=== PATIENT | male | born 1935 | race Caucasian/White ===

== ENCOUNTER 2021-06-09 11:16 | Inpatient (IN) ==
[2021-06-09] MEDS ORDERED: SODIUM CHLORIDE 0.9% 1,000 ML IV STA (12:22)
[2021-06-09] MEDS ORDERED: ONDANSETRON 4 MG/2 ML VIAL IV STA (12:22)
[2021-06-09 12:42] LABS: Basophils % 0.2 % (0.0-0.8); Eosinophils # 0.3 10*3/uL (0.0-0.87); Eosinophils % 1.9 % (0.00-10.9); Immature Granulocytes % 0.5 %; Immature Granulocytes Absolute 0.08 #; Lymphocytes # 2.6 10*3/uL (1.4-4.0); Lymphocytes % 17.9 % (21.2-54.2); Mean Corpuscular HGB Conc 31.9 GM/DL (32-36); Mean Corpuscular Volume 79.4 FL (87-102); Mean Platelet Volume 10.4 FL (9.6-12.0); Monocytes % 14.6 % (1.7-12.7); Neutrophils % 64.9 % (38.7-73.9); Platelet Count 378 T/CUMM (130-400); Red Blood Count 5.92 MC/CUMM (3.8-5.5); Red Cell Distribution Width 14.3 % (9.3-17.3); White Blood Count 14.6 T/CUMM (4-12)
[2021-06-09 12:52] LABS: Bacteria,Urine Occasional /HPF (Few); Bilirubin,Urine Negative (Negative); Blood, Urine Negative (Negative); Glucose,Urine (UA) Negative (Negative); Hyaline Casts,Urine 9 /LPF (0-3); Ketones,Urine Negative (Negative); Mucus,Urine Many /LPF (Occasional); Nitrite,Urine Negative (Negative); Protein,Urine 100 MG/DL; RBC,Urine 1 /HPF (0-4); Urine Appearance CLOUDY (Clear); Urine Color Amber (Yellow); Urine Urobilinogen < 2.0 EU/DL (0.2-1.0)
[2021-06-09 12:54] LABS: Calcium 10.4 MG/DL (8.5-10.1); Osmolality,Calculated 265.5 MOS/KG (273-304); Potassium 3.4 MMOL/L (3.5-5.1); Total Protein 8.5 G/DL (6.4-8.2)
[2021-06-09] MEDS ORDERED: DEXTROSE 50% 25 GM/50 ML VIAL IV PRN (15:18)
[2021-06-09] MEDS ORDERED: GLUCAGON 1 MG VIAL IM PRN (15:18)
[2021-06-09] MEDS ORDERED: ACETAMINOPHEN 325 MG TABLET PO PRN (15:19)
[2021-06-09] MEDS ORDERED: ONDANSETRON 4 MG/2 ML VIAL IV PRN (15:19)
[2021-06-09] MEDS ORDERED: cefTRIAXone 2,000 MG in SODIUM CHLORIDE 0.9% 100 ML IV STA (15:21)
[2021-06-09] MEDS ORDERED: FLUTICASONE 50 MCG NASAL SPRAY 16 GM BOTTLE BOTH NARES PRN (15:32)
[2021-06-09] MEDS: ENOXAPARIN 40 MG/0.4 ML SYRINGE SUBCUT SCH (16:00)
[2021-06-09] MEDS: SODIUM CHLORIDE 0.9% 1,000 ML IV SCH (18:50)
[2021-06-09] MEDS ORDERED: NON-FORMULARY MEDICATION (Omeprazole 20 MG capsule,delayed release(DR/EC)) PO SCH (21:00)
[2021-06-09] MEDS: MONTELUKAST 10 MG TABLET PO SCH (21:41)
[2021-06-09] MEDS: PRAVASTATIN 40 MG TABLET PO SCH (21:42)
[2021-06-10] MEDS: SODIUM CHLORIDE 0.9% 1,000 ML IV SCH ×4 (05:05→16:02)
[2021-06-10 05:58] LABS: Basophils % 0.2 % (0.0-0.8); Eosinophils # 0.4 10*3/uL (0.0-0.87); Eosinophils % 4.9 % (0.00-10.9); Hematocrit 39.6 VOL% (42.0-52.0); Immature Granulocytes % 0.3 %; Immature Granulocytes Absolute 0.03 #; Lymphocytes # 3.1 10*3/uL (1.4-4.0); Mean Corpuscular HGB Conc 31.8 GM/DL (32-36); Mean Corpuscular Volume 80.7 FL (87-102); Mean Platelet Volume 10.1 FL (9.6-12.0); Monocytes % 13.6 % (1.7-12.7); Platelet Count 308 T/CUMM (130-400); Red Blood Count 4.91 MC/CUMM (3.8-5.5); Red Cell Distribution Width 14.4 % (9.3-17.3)
[2021-06-10 06:01] LABS: Hemoglobin 12.6 GM/DL (14.0-18.0); White Blood Count 8.7 T/CUMM (4-12)
[2021-06-10 06:04] LABS: Osmolality,Calculated 274.8 MOS/KG (273-304); Potassium 3.4 MMOL/L (3.5-5.1)
[2021-06-10] MEDS ORDERED: THYROID 60 MG TABLET PO SCH (09:00)
[2021-06-10] MEDS: MULTIVITAMIN (CENTRUM) TABLET PO SCH (09:39)
[2021-06-10] MEDS: PANTOPRAZOLE 40 MG TABLET PO SCH (09:39)
[2021-06-10] MEDS: NORTRIPTYLINE 25 MG CAPSULE PO SCH (09:39)
[2021-06-10] MEDS: DILTIAZEM CD 120 MG CAPSULE PO SCH (09:39)
[2021-06-10] MEDS: FENOFIBRATE 145 MG TABLET PO SCH (09:43)
[2021-06-10] MEDS: oxyCODONE/ACETAMINOPHEN 5-325 MG TABLET PO PRN (09:43)
[2021-06-10] MEDS: cefTRIAXone 2,000 MG in SODIUM CHLORIDE 0.9% 100 ML IV SCH (14:49)
[2021-06-10] MEDS: DICYCLOMINE 20 MG TABLET PO SCH ×2 (17:17→20:28)
[2021-06-10] MEDS: MONTELUKAST 10 MG TABLET PO SCH (20:28)
[2021-06-10] MEDS: ENOXAPARIN 40 MG/0.4 ML SYRINGE SUBCUT SCH (20:29)
[2021-06-10] MEDS: PRAVASTATIN 40 MG TABLET PO SCH (23:27)
[2021-06-11] MEDS: SODIUM CHLORIDE 0.9% 1,000 ML IV SCH ×2 (00:40→09:41)
[2021-06-11] MEDS ORDERED: THYROID 60 MG TABLET PO SCH (06:30)
[2021-06-11 08:15] LABS: Basophils % 0.4 % (0.0-0.8); Eosinophils # 0.4 10*3/uL (0.0-0.87); Hematocrit 36.7 VOL% (42.0-52.0); Hemoglobin 11.6 GM/DL (14.0-18.0); Immature Granulocytes % 0.2 %; Immature Granulocytes Absolute 0.01 #; Lymphocytes # 2.1 10*3/uL (1.4-4.0); Lymphocytes % 39.3 % (21.2-54.2); Mean Corpuscular HGB Conc 31.6 GM/DL (32-36); Mean Corpuscular Volume 80.7 FL (87-102); Mean Platelet Volume 9.9 FL (9.6-12.0); Neutrophils % 39.1 % (38.7-73.9); Platelet Count 284 T/CUMM (130-400); Red Blood Count 4.55 MC/CUMM (3.8-5.5); Red Cell Distribution Width 14.6 % (9.3-17.3); White Blood Count 5.4 T/CUMM (4-12)
[2021-06-11 08:35] LABS: Osmolality,Calculated 281.3 MOS/KG (273-304); Potassium 3.7 MMOL/L (3.5-5.1)
[2021-06-11] MEDS ORDERED: MORPHINE 2 MG/1 ML SYRINGE IV ONE (08:35)
[2021-06-11] MEDS: FENOFIBRATE 145 MG TABLET PO SCH (09:40)
[2021-06-11] MEDS: DICYCLOMINE 20 MG TABLET PO SCH (09:40)
[2021-06-11] MEDS: MULTIVITAMIN (CENTRUM) TABLET PO SCH (09:40)
[2021-06-11] MEDS: NORTRIPTYLINE 25 MG CAPSULE PO SCH (09:40)
[2021-06-11] MEDS: PANTOPRAZOLE 40 MG TABLET PO SCH (09:40)
[2021-06-11] MEDS: DILTIAZEM CD 120 MG CAPSULE PO SCH (09:41)
[2021-06-11] MEDS: oxyCODONE/ACETAMINOPHEN 5-325 MG TABLET PO PRN (09:45)
[2021-06-11] MEDS: cefTRIAXone 2,000 MG in SODIUM CHLORIDE 0.9% 100 ML IV SCH (09:46)
[2021-06-11 12:16] VITALS: BP 132/67
== END 2021-06-11 13:10 | disposition home or self-care (01) | DRG 392 ==
LOC: N.ED 11:16 → SUATTDRO 15:18 → N.EDINP 15:18 → N.5E 18:31
PROVIDERS: ADMIT Internal Medicine; ATTEND Internal Medicine

== ENCOUNTER 2022-09-02 09:41 | Inpatient (IN) ==
[2022-09-02] MEDS ORDERED: SODIUM CHLORIDE 0.9% 1,000 ML IV STA (09:52)
[2022-09-02 10:57] LABS: Basophils % 0.2 % (0.0-0.8); Eosinophils # 0.2 10*3/uL (0.0-0.87); Eosinophils % 1.4 % (0.00-10.9); Hematocrit 43.2 VOL% (42.0-52.0); Hemoglobin 14.2 GM/DL (14.0-18.0); Immature Granulocytes % 1.9 %; Immature Granulocytes Absolute 0.27 #; Lymphocytes # 2.6 10*3/uL (1.4-4.0); Lymphocytes % 18.6 % (21.2-54.2); Mean Corpuscular HGB Conc 32.9 GM/DL (32-36); Mean Corpuscular Volume 91.9 FL (87-102); Monocytes # 1.5 10*3/uL (0.11-0.8); Monocytes % 10.6 % (1.7-12.7); Neutrophils % 67.3 % (38.7-73.9); Platelet Count 191 T/CUMM (130-400); Red Cell Distribution Width 12.6 % (9.3-17.3); White Blood Count 13.9 T/CUMM (4-12)
[2022-09-02 11:14] LABS: INR 0.9; PT Patient Result 10.1 SECS (10.1-12.1)
[2022-09-02 11:25] LABS: Albumin 3.5 G/DL (3.4-5.0); Bilirubin,Total 0.5 MG/DL (0.20-1.00); Calcium 9.5 MG/DL (8.5-10.1); Osmolality,Calculated 280.5 MOS/KG (273-304); Potassium 3.8 MMOL/L (3.5-5.1); Total Protein 6.7 G/DL (6.4-8.2)
[2022-09-02] MEDS ORDERED: methylPREDNISolone SOD SUC 125 MG/2 ML VIAL IV STA (11:54)
[2022-09-02] MEDS ORDERED: diphenhydrAMINE 50 MG/1 ML VIAL IV STA (11:54)
[2022-09-02] MEDS ORDERED: ONDANSETRON 4 MG/2 ML VIAL IV PRN (13:02)
[2022-09-02] MEDS ORDERED: DOCUSATE SODIUM 100 MG CAPSULE PO PRN (13:02)
[2022-09-02] MEDS ORDERED: diphenhydrAMINE CAP 25 MG CAPSULE PO PRN (13:02)
[2022-09-02] MEDS ORDERED: ZALEPLON 5 MG CAPSULE PO PRN (13:02)
[2022-09-02] MEDS ORDERED: ALUMINUM/MAGNES/SIMETH MAX STR 30 ML UDCUP PO PRN (13:02)
[2022-09-02] MEDS ORDERED: MAGNESIUM SULF RIDER 2 GM/50 ML PREMIX IV PRN (13:05)
[2022-09-02] MEDS ORDERED: MAGNESIUM SULF RIDER 4 GM/100 ML PREMIX IV PRN (13:05)
[2022-09-02] MEDS ORDERED: POTASSIUM CHLORIDE 20 MEQ TABLET PO PRN (13:05)
[2022-09-02] MEDS ORDERED: hydrALAZINE 20 MG/1 ML VIAL IV PRN (13:07)
[2022-09-02] MEDS: SODIUM CHLORIDE 0.9% 1,000 ML IV SCH ×2 (13:44→22:19)
[2022-09-02] MEDS ORDERED: CLORAZEPATE 3.75 MG TABLET PO PRN (14:29)
[2022-09-02] MEDS: ASPIRIN EC 81 MG TABLET PO SCH (14:57)
[2022-09-02 15:01] LABS: RBC,Urine 1 /HPF (0-4)
[2022-09-02 15:02] LABS: Bilirubin,Urine Negative (Negative); Blood, Urine Negative (Negative); Glucose,Urine (UA) Negative (Negative); Ketones,Urine Negative (Negative); Nitrite,Urine Negative (Negative); Protein,Urine Negative (Negative); Urine Appearance Clear (Clear); Urine Color Yellow (Yellow); Urine Specific Gravity 1.015 (1.001-1.035)
[2022-09-02 16:39] LABS: Barbiturates Screen,Urine Negative (Negative); Benzodiazepines Screen,Urine Positive (Negative); Cannabinoid Screen,Urine Negative (Negative); Opiate Screen,Urine Negative (Negative); Phencyclidine Screen,Urine Negative (Negative)
[2022-09-02] MEDS: MONTELUKAST 10 MG TABLET PO SCH (20:35)
[2022-09-02] MEDS: ZALEPLON 5 MG CAPSULE PO SCH (20:36)
[2022-09-03 04:40] LABS: Basophils % 0.1 % (0.0-0.8); Hematocrit 36.8 VOL% (42.0-52.0); Hemoglobin 12.5 GM/DL (14.0-18.0); Immature Granulocytes % 1.5 %; Lymphocytes # 1.6 10*3/uL (1.4-4.0); Lymphocytes % 22.6 % (21.2-54.2); Mean Corpuscular Volume 90.2 FL (87-102); Mean Platelet Volume 10.4 FL (9.6-12.0); Monocytes # 0.2 10*3/uL (0.11-0.8); Monocytes % 3.5 % (1.7-12.7); Neutrophils % 72.3 % (38.7-73.9); Platelet Count 166 T/CUMM (130-400); Red Blood Count 4.08 MC/CUMM (3.8-5.5); Red Cell Distribution Width 12.4 % (9.3-17.3); White Blood Count 6.9 T/CUMM (4-12)
[2022-09-03 05:08] LABS: Alanine Aminotransferase 26 U/L (16-61); Albumin 2.7 G/DL (3.4-5.0); Alkaline Phosphatase 25 U/L (45-117); Aspartate Amino Transferase 16 U/L (0-37); Bilirubin,Total < 0.39 MG/DL (0.20-1.00); Blood Urea Nitrogen 22 MG/DL (7-18); Calcium 8.5 MG/DL (8.5-10.1); Calcium 8.9 MG/DL (8.5-10.1); Carbon Dioxide 22 MMOL/L (21-32); Chloride 111 MMOL/L (98-107); Cholesterol 141 MG/DL (50-200); Glucose 172 MG/DL (74-106); HDL Cholesterol 45 MG/DL (40-60); Osmolality,Calculated 285.4 MOS/KG (273-304); Osmolality,Calculated 287.4 MOS/KG (273-304); Potassium 4.2 MMOL/L (3.5-5.1); Potassium 4.3 MMOL/L (3.5-5.1); Risk Ratio 3.13; Sodium 140 MMOL/L (136-145); Total Protein 5.7 G/DL (6.4-8.2); Triglycerides 146 MG/DL (2-150); VLDL Cholesterol 29.2 MG/DL
[2022-09-03] MEDS: SODIUM CHLORIDE 0.9% 1,000 ML IV SCH (06:39)
[2022-09-03] MEDS ORDERED: ceFAZolin 1,000 MG VIAL IRRIG ONE (06:56)
[2022-09-03] MEDS ORDERED: diphenhydrAMINE CAP 25 MG CAPSULE PO ONE (06:56)
[2022-09-03] MEDS ORDERED: DIAZEPAM 5 MG TABLET PO ONE (06:56)
[2022-09-03] MEDS: THYROID 60 MG TABLET PO SCH (06:58)
[2022-09-03] MEDS ORDERED: HEPARIN/NACL 0.9% 2 UNITS/ML 1,000 UNIT/500 ML BAG IV ONE (08:39)
[2022-09-03] MEDS ORDERED: MIDAZOLAM 2 MG/2 ML VIAL ONE ×3 (09:20→09:49)
[2022-09-03] MEDS ORDERED: ceFAZolin 1,000 MG VIAL ONE (09:20)
[2022-09-03] MEDS ORDERED: fentaNYL 100 MCG/2 ML VIAL ONE (09:20)
[2022-09-03] MEDS ORDERED: TISSUE ADHESIVE 1 EACH APPLICATOR TOP ONE (09:29)
[2022-09-03] MEDS ORDERED: ACETAMINOPHEN 500 MG TABLET PO PRN (10:31)
[2022-09-03] MEDS ORDERED: CYANOCOBALAMIN 1000 MCG/1 ML VIAL SUBCUT ONE (11:00)
[2022-09-03] MEDS ORDERED: MORPHINE 2 MG/1 ML SYRINGE IV PRN (11:17)
[2022-09-03] MEDS: predniSONE 5 MG TABLET PO SCH (11:28)
[2022-09-03] MEDS: ESCITALOPRAM 10 MG TABLET PO SCH (11:28)
[2022-09-03] MEDS: ASPIRIN EC 81 MG TABLET PO SCH (11:28)
[2022-09-03] MEDS: SIMVASTATIN 20 MG TABLET PO SCH (11:28)
[2022-09-03] MEDS: FERROUS SULFATE 325 MG TABLET PO SCH (11:28)
[2022-09-03] MEDS: PANTOPRAZOLE 40 MG TABLET PO SCH (11:29)
[2022-09-03] MEDS: FENOFIBRATE 145 MG TABLET PO SCH (11:29)
[2022-09-03] MEDS: NON-FORMULARY MEDICATION (Umeclidinium-Vilanterol [Anoro Ellipta] 62.5-25 mcg/actuation Bl INH SCH (11:45)
[2022-09-03 17:19] VITALS: BP 94/71
[2022-09-03] MEDS: ZALEPLON 5 MG CAPSULE PO SCH (20:39)
[2022-09-03] MEDS: MONTELUKAST 10 MG TABLET PO SCH (20:39)
[2022-09-04 05:41] LABS: Basophils % 0.2 % (0.0-0.8); Eosinophils # 0.1 10*3/uL (0.0-0.87); Eosinophils % 1.1 % (0.00-10.9); Hemoglobin 12.6 GM/DL (14.0-18.0); Immature Granulocytes % 0.8 %; Lymphocytes % 24.9 % (21.2-54.2); Mean Corpuscular HGB Conc 33.2 GM/DL (32-36); Mean Platelet Volume 10.1 FL (9.6-12.0); Monocytes # 1.1 10*3/uL (0.11-0.8); Monocytes % 8.7 % (1.7-12.7); Neutrophils % 64.3 % (38.7-73.9); Platelet Count 173 T/CUMM (130-400); Red Blood Count 4.13 MC/CUMM (3.8-5.5); Red Cell Distribution Width 12.8 % (9.3-17.3); White Blood Count 12.2 T/CUMM (4-12)
[2022-09-04 06:01] LABS: Calcium 9.5 MG/DL (8.5-10.1); Osmolality,Calculated 289.1 MOS/KG (273-304)
[2022-09-04 06:22] LABS: Alanine Aminotransferase 26 U/L (16-61); Albumin 3.2 G/DL (3.4-5.0); Alkaline Phosphatase 26 U/L (45-117); Aspartate Amino Transferase 18 U/L (0-37); Bilirubin,Total < 0.39 MG/DL (0.20-1.00); Blood Urea Nitrogen 27 MG/DL (7-18); Calcium 9.2 MG/DL (8.5-10.1); Carbon Dioxide 26 MMOL/L (21-32); Chloride 110 MMOL/L (98-107); Glucose 107 MG/DL (74-106); Osmolality,Calculated 287.1 MOS/KG (273-304); Sodium 142 MMOL/L (136-145)
[2022-09-04] MEDS: THYROID 60 MG TABLET PO SCH (06:38)
[2022-09-04] MEDS ORDERED: VALSARTAN 160 MG TABLET PO SCH (09:00)
[2022-09-04] MEDS ORDERED: DILTIAZEM CD 120 MG CAPSULE PO SCH (09:00)
[2022-09-04] MEDS ORDERED: NEBIVOLOL 10 MG TABLET PO SCH (09:00)
[2022-09-04] MEDS ORDERED: SPIRONOLACTONE 25 MG TABLET PO SCH (09:00)
[2022-09-04] MEDS: ESCITALOPRAM 10 MG TABLET PO SCH (09:29)
[2022-09-04] MEDS: SIMVASTATIN 20 MG TABLET PO SCH (09:30)
[2022-09-04] MEDS: FENOFIBRATE 145 MG TABLET PO SCH (09:31)
[2022-09-04] MEDS: FERROUS SULFATE 325 MG TABLET PO SCH (09:31)
[2022-09-04] MEDS: ASPIRIN EC 81 MG TABLET PO SCH (09:31)
[2022-09-04] MEDS: PANTOPRAZOLE 40 MG TABLET PO SCH (09:31)
[2022-09-04] MEDS: predniSONE 5 MG TABLET PO SCH (09:31)
[2022-09-04] MEDS: NON-FORMULARY MEDICATION (Umeclidinium-Vilanterol [Anoro Ellipta] 62.5-25 mcg/actuation Bl INH SCH (09:32)
== END 2022-09-04 12:40 | disposition home or self-care (01) | DRG 243 ==
LOC: N.ED 09:41 → N.EDINP 13:01 → N.CC 14:07
PROVIDERS: ADMIT Internal Medicine Cardiovascular Disease; ATTEND Internal Medicine Cardiovascular Disease